=== PATIENT | female | born 1990 | race African-American/Black ===

== ENCOUNTER 2021-10-23 02:07 | Inpatient (IN) ==
[2021-10-23] MEDS ORDERED: ONDANSETRON 4 MG/2 ML VIAL IV PRN (02:22)
[2021-10-23] MEDS ORDERED: MEPERIDINE 50 MG/1 ML VIAL IV PRN (02:22)
[2021-10-23] MEDS ORDERED: OXYTOCIN/LR 20 UNIT/1,000 ML BAG IV SCH (02:30)
[2021-10-23] MEDS: LACTATED RINGERS 1,000 ML IV SCH ×2 (02:38→09:06)
[2021-10-23 03:11] LABS: Basophils % 0.5 % (0.0-0.8); Eosinophils # 0.1 10*3/uL (0.0-0.87); Eosinophils % 0.9 % (0.00-10.9); Hematocrit 37.7 VOL% (35.7-47.0); Immature Granulocytes % 1.2 %; Lymphocytes # 2.7 10*3/uL (1.4-4.0); Lymphocytes % 32.1 % (21.3-54.2); Mean Corpuscular HGB Conc 29.2 GM/DL (32-36); Mean Corpuscular Volume 81.1 FL (87-102); Mean Platelet Volume 10.9 FL (9.6-12.0); Monocytes % 10.7 % (1.7-12.7); Neutrophils % 54.6 % (38.7-73.9); Platelet Count 276 T/CUMM (130-400); Red Blood Count 4.65 MC/CUMM (3.8-5.5); Red Cell Distribution Width 16.4 % (9.3-17.3); White Blood Count 8.5 T/CUMM (4-12)
[2021-10-23] MEDS ORDERED: FAMOTIDINE 20 MG/2 ML VIAL IV ONE (08:57)
[2021-10-23] MEDS ORDERED: LACTATED RINGERS 1,000 ML IV ONE (08:57)
[2021-10-23] MEDS ORDERED: CITRIC ACID/SODIUM CITRATE 30 ML UDCUP PO ONE (08:57)
[2021-10-23] MEDS ORDERED: diphenhydrAMINE 50 MG/1 ML VIAL IV PRN (08:58)
[2021-10-23] MEDS ORDERED: NALOXONE 0.4 MG/ML VIAL IV PRN (08:58)
[2021-10-23] MEDS ORDERED: ePHEDrine 50 MG/ML VIAL IV PRN (08:58)
[2021-10-23] MEDS ORDERED: fentaNYL 2 MCG/ROPIV 0.2% EPID 100 ML EPIDURAL SCH (09:00)
[2021-10-23] MEDS ORDERED: miSOPROStoL 200 MCG TABLET ONE (09:39)
[2021-10-23] MEDS ORDERED: TRANEXAMIC ACID 1,000 MG/10 ML VIAL ONE (09:39)
[2021-10-23] MEDS ORDERED: CARBOPROST TROMETHAMINE 250 MCG/ML AMP IM ONE (09:40)
[2021-10-23] MEDS ORDERED: METHYLERGONOVINE 0.2 MG/1 ML AMP ONE (09:40)
[2021-10-23 12:35] LABS: Cord Venous Blood PCO2 46.8 MMHG; Cord Venous Blood PO2 40.7
[2021-10-23] MEDS ORDERED: BISACODYL 10 MG SUPP RECTAL PRN (15:01)
[2021-10-23] MEDS ORDERED: RHO(D) IMMUNE GLOBULIN 300 MCG SYRINGE IM ONE (15:01)
[2021-10-23] MEDS ORDERED: WITCH HAZEL PADS 100/JAR TOP PRN (15:01)
[2021-10-23] MEDS ORDERED: BENZOCAINE 20%/MENTHOL 0.5% SPRAY 56 GM CAN TOP PRN (15:01)
[2021-10-23] MEDS ORDERED: ACETAMINOPHEN 325 MG TABLET PO PRN (15:01)
[2021-10-23] MEDS ORDERED: DIPH/TET/ACEL PERT BOOSTER VACCINE 0.5 ML VIAL IM ONE (15:01)
[2021-10-23] MEDS ORDERED: oxyCODONE/ACETAMINOPHEN 5-325 MG TABLET PO PRN (15:01)
[2021-10-23] MEDS ORDERED: LANOLIN 50% CREAM 0.3 OZ TUBE TOP PRN (15:01)
[2021-10-23] MEDS ORDERED: HYDROCORTISONE 2.5% RECTAL CREAM 30 GM TUBE TOP PRN (15:01)
[2021-10-23] MEDS ORDERED: OXYTOCIN/LR 20 UNIT/1,000 ML BAG IV ONE (15:01)
[2021-10-23] MEDS ORDERED: MEASLES/MUMPS/RUBELLA VACCINE 0.5 ML VIAL SUBCUT ONE (15:01)
[2021-10-23] MEDS: oxyCODONE/ACETAMINOPHEN 5-325 MG TABLET PO PRN (15:14)
[2021-10-23] MEDS: IBUPROFEN 800 MG TABLET PO PRN ×2 (15:15→21:08)
[2021-10-23] MEDS: DOCUSATE SODIUM 100 MG CAPSULE PO SCH (21:01)
[2021-10-24] MEDS: IBUPROFEN 800 MG TABLET PO PRN (04:02)
[2021-10-24 06:01] LABS: Basophils % 0.4 % (0.0-0.8); Eosinophils # 0.2 10*3/uL (0.0-0.87); Eosinophils % 1.5 % (0.00-10.9); Hematocrit 34.8 VOL% (35.7-47.0); Immature Granulocytes % 0.9 %; Lymphocytes # 2.8 10*3/uL (1.4-4.0); Lymphocytes % 25.6 % (21.3-54.2); Mean Corpuscular HGB Conc 29.6 GM/DL (32-36); Mean Corpuscular Volume 80.9 FL (87-102); Mean Platelet Volume 11.4 FL (9.6-12.0); Monocytes % 8.4 % (1.7-12.7); Neutrophils % 63.2 % (38.7-73.9); Platelet Count 246 T/CUMM (130-400); Red Cell Distribution Width 16.5 % (9.3-17.3); White Blood Count 10.8 T/CUMM (4-12)
[2021-10-24 06:06] LABS: Hemoglobin 10.3 GM/DL (12.0-16.0)
[2021-10-24] MEDS: DOCUSATE SODIUM 100 MG CAPSULE PO SCH ×2 (08:21→21:08)
[2021-10-24] MEDS: oxyCODONE/ACETAMINOPHEN 5-325 MG TABLET PO PRN (08:22)
[2021-10-24] MEDS ORDERED: ONDANSETRON 4 MG TABLET PO PRN (20:28)
[2021-10-25] MEDS: IBUPROFEN 800 MG TABLET PO PRN ×2 (00:59→08:54)
[2021-10-25 07:57] VITALS: BP 110/61
[2021-10-25] MEDS: DOCUSATE SODIUM 100 MG CAPSULE PO SCH (08:55)
== END 2021-10-25 12:20 | disposition home or self-care (01) | DRG 807 ==
LOC: N.LD 02:07 → N.OB 15:00
PROVIDERS: ADMIT Obstetrics & Gynecology; ATTEND Obstetrics & Gynecology